=== PATIENT | male | born 1995 | race Caucasian/White ===

== ENCOUNTER 2019-02-28 07:09 | Inpatient (IN) | payer MEDICAID ==
[2019-02-28] VITALS (21 sets, daily range): BP systolic 96–138; BP diastolic 46–71
[~2019-02-28] VITALS: Ht 170.2 cm; Wt 100.9 kg
[~2019-02-28 07:09] MED LIST: INSASP; INSLAN SQ
[2019-02-28] MEDS ORDERED: SODIUM CHLORIDE 0.9% 1000ML BAG (SEPSIS BOLUS) IV ONE (08:00)
[2019-02-28 08:14] LABS: HEMATOCRIT. 54.2 % (42.0-52.0); HEMOGLOBIN. 16.4 g/dL (14.0-18.0); MEAN CORPUSCULAR HEMOGLOBIN 30.4 pg (28.0-32.0); MEAN CORPUSCULAR VOLUME 100.5 fL (80.0-94.0); MEAN PLATELET VOLUME 9.1 fl (7.4-10.4); PLATELET 415 x1000/uL (130-400); RED CELL DISTRIBUTION WIDTH 14.3 % (11.6-14.6)
[2019-02-28 08:21] LABS: CHLORIDE 87 mEq/L (98-107)
[2019-02-28 08:22] LABS: INR 1.1; PROTHROMBIN TIME 11.4 sec (9.6-11.0)
[2019-02-28 08:26] LABS: ETHANOL BLOOD < 10 mg/dL
[2019-02-28 08:29] LABS: BG BASE EXCESS -24.7 mmol/L (-2.0-2.0); BG CARBOXYHEMOGLOBIN 0.7 % (0.5-1.5); BG DEOXYHEMOGLOBIN 2.2 % (0.0-5.0); BG HCO3 ACT 4.1 mmol/L (22.0-26.0); BG METHEMOGLOBIN 0.5 % (0.0-1.5); BG OXYGEN SATURATION 97.8 % (92.0-98.5); BG OXYHEMOGLOBIN 96.6 % (94.0-97.0); BG PCO2 15.4 mmHg (35.0-45.0); BG PH 7.038 (7.350-7.450); BG PO2 133.7 mmHg (75.0-100.0); BG SAMPLE SITE LEFT RADIAL; BG TOTAL HEMOGLOBIN 15.7 g/dL (12.0-18.0); BG VENT MODE NASAL CANNULA
[2019-02-28] MEDS ORDERED: MORPHINE SULFATE 4 MG/ML CPJ (NOT FOR IM USE) IV STA (08:42)
[2019-02-28] MEDS ORDERED: ONDANSETRON HCL 4MG/2ML INJ IV STA (08:42)
[2019-02-28 08:58] LABS: CLARITY URINE CLEAR (CLEAR); COLOR URINE YELLOW (YELLOW); KETONES URINE 2+ (NEGATIVE); LEUKOCYTE ESTERASE URINE NEGATIVE (NEGATIVE); NITRITE URINE NEGATIVE (NEGATIVE); OCCULT BLOOD URINE 2+ (NEGATIVE); PROTEIN URINE TRACE (NEGATIVE); UROBILINOGEN URINE 0.2 E.U./dL (0.2-1.0)
[2019-02-28] MEDS: INSULIN REGULAR (DRIP) 100 UNITS in SODIUM CHLORIDE 0.9% 99 ML IV SCH ×2 (09:08→10:23)
[2019-02-28 09:13] LABS: PHOSPHORUS 9.3 mg/dL (2.5-4.9)
[2019-02-28 09:15] LABS: BETA HYDROXYBUTYRATE 13.3 mMol/L (0.0-0.3)
[2019-02-28 09:27] LABS: *AMPHETAMINES SCREEN URINE NEGATIVE (NEGATIVE); *BARBITURATES SCREEN URINE NEGATIVE (NEGATIVE); *BENZODIAZEPINES SCREEN URINE NEGATIVE (NEGATIVE); *COCAINE SCREEN URINE NEGATIVE (NEGATIVE)
[2019-02-28 09:28] LABS: CANNABINOID URINE SCREEN NEGATIVE (NEGATIVE); METHADONE URINE SCREEN NEGATIVE (NEGATIVE); OPIATES URINE SCREEN NEGATIVE (NEGATIVE); PHENCYCLIDINE URINE SCREEN NEGATIVE (NEGATIVE)
[2019-02-28 09:34] LABS: PLATELET ESTIMATE INCREASED
[2019-02-28] MEDS ORDERED: SODIUM CHLORIDE 0.9% 1,000 ML IV ONE (10:09)
[2019-02-28] MEDS ORDERED: PIPERACILLIN/TAZOBACTAM 3.375GM/50ML PREMIX IV ONE (10:15)
[2019-02-28] MEDS ORDERED: LACTATED RINGERS 1,000 ML IV SCH (10:30)
[2019-02-28] MEDS ORDERED: IPRATROPIUM/ALBUTEROL 0.5-3(2.5)MG/3ML NEB INH PRN (11:00)
[2019-02-28] MEDS ORDERED: CLONIDINE 0.1MG TABLET PO PRN (11:00)
[2019-02-28] MEDS ORDERED: MAGNESIUM/ALUMINUM HYDROXIDE/SIMETHICONE 30ML UDC PO PRN (11:00)
[2019-02-28] MEDS ORDERED: DIPHENHYDRAMINE 50MG/ML VIAL IV PRN (11:00)
[2019-02-28] MEDS ORDERED: ONDANSETRON HCL 4MG/2ML INJ IV PRN (11:00)
[2019-02-28] MEDS: SODIUM CHLORIDE 0.9% 1,000 ML IV SCH ×2 (12:34→17:31)
[2019-02-28] MEDS: ENOXAPARIN 40MG/0.4ML SYR SUBCUT SCH (12:34)
[2019-02-28 12:45] LABS: PHOSPHORUS 4.4 mg/dL (2.5-4.9)
[2019-02-28] MEDS: CEFTRIAXONE 1 G PREMIX 50 ML IV SCH (13:29)
[2019-02-28] MEDS ORDERED: DEXTROSE 50% WATER 50ML SYRINGE IV PRN ×2 (13:30)
[2019-02-28] MEDS: BLOOD SUGAR DIAGNOSTIC STRIP TEST SCH ×9 (14:00→23:47)
[2019-02-28] MEDS: FLUCONAZOLE 100MG TABLET PO SCH (15:34)
[2019-02-28] MEDS: INSULIN REGULAR (DRIP) 100 UNITS in SODIUM CHLORIDE 0.9% 99 ML IV PRN ×2 (15:35→20:03)
[2019-02-28 16:49] LABS: CREATINE KINASE MB FRACTION 2.6 ng/mL (0.5-3.6)
[2019-02-28 20:45] LABS: CHLORIDE 116 mEq/L (98-107)
[2019-02-28] MEDS: DEXT 5%/0.9% NACL KCL 20MEQ/L 1,000 ML IV SCH (21:11)
[2019-03-01] VITALS (41 sets, daily range): BP systolic 91–151; BP diastolic 36–97
[2019-03-01 00:14] LABS: CREATINE KINASE MB FRACTION 4.8 ng/mL (0.5-3.6)
[2019-03-01] MEDS: BLOOD SUGAR DIAGNOSTIC STRIP TEST SCH ×13 (00:14→21:38)
[2019-03-01 00:39] LABS: CHLORIDE 116 mEq/L (98-107)
[2019-03-01] MEDS: DEXT 5%/0.9% NACL KCL 20MEQ/L 1,000 ML IV SCH ×2 (02:07→06:55)
[2019-03-01 06:26] LABS: BASOPHILS % 0.3 % (0.0-2.0); HEMATOCRIT. 40.6 % (42.0-52.0); LYMPHOCYTES % 9.1 % (20.0-50.0); MEAN CORPUSCULAR HEMOGLOBIN 30.9 pg (28.0-32.0); MEAN CORPUSCULAR VOLUME 89.7 fL (80.0-94.0); MONOCYTES % 11.8 % (2.0-8.0); NEUTROPHILS % 78.8 % (40.0-76.0); PLATELET 269 x1000/uL (130-400); RED BLOOD CELL COUNT 4.53 mill/uL (4.7-6.1); RED CELL DISTRIBUTION WIDTH 13.3 % (11.6-14.6)
[2019-03-01 06:33] LABS: CHLORIDE 118 mEq/L (98-107)
[2019-03-01 06:41] LABS: LDL CHOLESTEROL 43 mg/dL (5-100)
[2019-03-01 06:42] LABS: HDL CHOLESTEROL 41 mg/dL (40-59)
[2019-03-01] MEDS: FLUCONAZOLE 100MG TABLET PO SCH (09:05)
[2019-03-01] MEDS ORDERED: DEXTROSE 50% WATER 50ML SYRINGE IV PRN (09:45)
[2019-03-01] MEDS ORDERED: DEXT 5%/0.45% NACL KCL 20MEQ/L 1,000 ML IV SCH (10:30)
[2019-03-01] MEDS: ENOXAPARIN 40MG/0.4ML SYR SUBCUT SCH (11:22)
[2019-03-01] MEDS: INSULIN LISPRO 100 UNITS/ML SUBCUT SCH ×3 (12:36→21:43)
[2019-03-01] MEDS: CEFTRIAXONE 1 G PREMIX 50 ML IV SCH (12:37)
[2019-03-01 14:28] LABS: CHLORIDE 116 mEq/L (98-107)
[2019-03-01] MEDS ORDERED: INSULIN GLARGINE UD 100 UNITS/ML SYR SUBCUT NR (16:00)
[2019-03-01] MEDS ORDERED: INSULIN LISPRO 100 UNITS/ML SUBCUT NR (20:15)
[2019-03-02] VITALS (32 sets, daily range): BP systolic 110–155; BP diastolic 56–108
[2019-03-02 06:15] LABS: CHLORIDE 109 mEq/L (98-107)
[2019-03-02 06:20] LABS: PHOSPHORUS 1.6 mg/dL (2.5-4.9)
[2019-03-02 06:25] LABS: EOSINOPHILS % 0.8 % (0.0-5.0); HEMATOCRIT. 41.5 % (42.0-52.0); HEMOGLOBIN. 14.2 g/dL (14.0-18.0); LYMPHOCYTES % 21.6 % (20.0-50.0); MEAN CORPUSCULAR HEMOGLOBIN 30.7 pg (28.0-32.0); MEAN PLATELET VOLUME 8.5 fl (7.4-10.4); MONOCYTES % 12.7 % (2.0-8.0); NEUTROPHILS % 63.9 % (40.0-76.0); PLATELET 213 x1000/uL (130-400); RED BLOOD CELL COUNT 4.61 mill/uL (4.7-6.1); RED CELL DISTRIBUTION WIDTH 13.2 % (11.6-14.6)
[2019-03-02] MEDS: BLOOD SUGAR DIAGNOSTIC STRIP TEST SCH ×4 (07:50→21:00)
[2019-03-02] MEDS: INSULIN LISPRO 100 UNITS/ML SUBCUT SCH ×4 (09:34→22:14)
[2019-03-02] MEDS: ENOXAPARIN 30MG/0.3ML SYR SUBCUT SCH ×2 (09:38→22:30)
[2019-03-02] MEDS ORDERED: MAGNESIUM 4 G PREMIX 100 ML IV NR (10:00)
[2019-03-02] MEDS: INSULIN GLARGINE UD 100 UNITS/ML SYR SUBCUT SCH ×2 (12:59→22:32)
[2019-03-02] MEDS ORDERED: INSULIN GLARGINE UD 100 UNITS/ML SYR SUBCUT SCH (22:00)
[2019-03-03] VITALS (15 sets, daily range): BP systolic 99–143; BP diastolic 55–93
[2019-03-03 05:47] LABS: HEMATOCRIT. 41.5 % (42.0-52.0); HEMOGLOBIN. 14.4 g/dL (14.0-18.0); MEAN CORPUSCULAR VOLUME 88.9 fL (80.0-94.0); MEAN PLATELET VOLUME 8.3 fl (7.4-10.4); PLATELET 225 x1000/uL (130-400); RED BLOOD CELL COUNT 4.67 mill/uL (4.7-6.1); RED CELL DISTRIBUTION WIDTH 12.9 % (11.6-14.6)
[2019-03-03 05:57] LABS: CHLORIDE 105 mEq/L (98-107)
[2019-03-03 07:47] LABS: PLATELET ESTIMATE NORMAL
[2019-03-03] MEDS: BLOOD SUGAR DIAGNOSTIC STRIP TEST SCH ×2 (07:50→12:20)
[2019-03-03] MEDS: INSULIN GLARGINE UD 100 UNITS/ML SYR SUBCUT SCH (09:09)
[2019-03-03] MEDS: ENOXAPARIN 30MG/0.3ML SYR SUBCUT SCH (09:12)
[2019-03-03] MEDS: INSULIN LISPRO 100 UNITS/ML SUBCUT SCH ×2 (09:14→12:43)
[2019-03-03] MEDS ORDERED: LANTUSUD SUBCUT (09:40)
[2019-03-03] MEDS ORDERED: INSASP SUBCUT (09:40)
[2019-03-03 12:05] LABS: PHOSPHORUS 2.9 mg/dL (2.5-4.9)
== END 2019-03-03 14:25 | disposition home or self-care (01) | DRG 720 ==
LOC: ER 07:09 → CVICU 10:12 → EDBEDREQ 10:22 → ENRESERV 10:33
PROVIDERS: ADMIT Internal Medicine; ATTEND Internal Medicine
DX: A41.9 Sepsis, unspecified organism (principal); E10.10 Type 1 diabetes mellitus with ketoacidosis without coma; N17.9 Acute kidney failure, unspecified; E83.39 Other disorders of phosphorus metabolism; E87.1 Hypo-osmolality and hyponatremia; E83.42 Hypomagnesemia; B37.9 Candidiasis, unspecified; E87.0 Hyperosmolality and hypernatremia; Z79.4 Long term (current) use of insulin; E86.0 Dehydration; E87.5 Hyperkalemia; L98.9 Disorder of the skin and subcutaneous tissue, unspecified; Z90.49 Acquired absence of other specified parts of digestive tract
CPT/HCPCS: 36415; 36600; 71045; 80048; 80061; 80305; 80320; 82010; 82375; 82550; 82553; 82805; 82962; 83036; 83605; 83735; 84100; 84145; 84443; 84484; 93005; 93308; 93970; 96365; 96366; 96375; 99291; J0696; J1650; J1815; J2270; J2405; J2543; J3475; J7030; J7050; G0480

== ENCOUNTER 2019-04-25 19:29 | Inpatient (IN) | payer MEDICAID ==
[~2019-04-25] VITALS: Ht 170.2 cm; Wt 84.4 kg
[~2019-04-25 19:29] MED LIST changes: -INSASP; +INSASP SUBCUT; -INSLAN SQ; +LANTUSUD SUBCUT
[2019-04-25] MEDS ORDERED: ONDANSETRON HCL 4MG/2ML INJ IV STA ×2 (20:04→21:39)
[2019-04-25] MEDS ORDERED: SODIUM CHLORIDE 0.9% 1000ML BAG (SEPSIS BOLUS) IV ONE (20:15)
[2019-04-25 20:18] LABS: BASOPHILS % 0.6 % (0.0-2.0); EOSINOPHILS % 0.1 % (0.0-5.0); HEMATOCRIT. 51.1 % (42.0-52.0); HEMOGLOBIN. 16.3 g/dL (14.0-18.0); LYMPHOCYTES % 7.4 % (20.0-50.0); MEAN CORPUSCULAR HEMOGLOBIN 30.7 pg (28.0-32.0); MEAN CORPUSCULAR VOLUME 96.1 fL (80.0-94.0); MEAN PLATELET VOLUME 10.1 fl (7.4-10.4); MONOCYTES % 4.7 % (2.0-8.0); NEUTROPHILS % 87.2 % (40.0-76.0); PLATELET 355 x1000/uL (130-400); RED BLOOD CELL COUNT 5.31 mill/uL (4.7-6.1); RED CELL DISTRIBUTION WIDTH 13.6 % (11.6-14.6)
[2019-04-25 20:22] LABS: CHLORIDE 92 mEq/L (98-107)
[2019-04-25 20:23] LABS: PROTHROMBIN TIME 10.7 sec (9.6-11.0)
[2019-04-25 20:25] LABS: BG BASE EXCESS -26.4 mmol/L (-2.0-2.0); BG DEOXYHEMOGLOBIN 3.3 % (0.0-5.0); BG FRACTION INSPIRED OXYGEN 21; BG HCO3 ACT 2.7 mmol/L (22.0-26.0); BG METHEMOGLOBIN 0.5 % (0.0-1.5); BG OXYGEN SATURATION 96.7 % (92.0-98.5); BG OXYHEMOGLOBIN 96.2 % (94.0-97.0); BG PCO2 10.8 mmHg (35.0-45.0); BG PH 7.012 (7.350-7.450); BG PO2 109.4 mmHg (75.0-100.0); BG SAMPLE SITE RIGHT RADIAL; BG TOTAL HEMOGLOBIN 15.5 g/dL (12.0-18.0); BG VENT MODE ROOM AIR
[2019-04-25 20:26] LABS: ETHANOL BLOOD < 10 mg/dL
[2019-04-25] MEDS ORDERED: ONDANSETRON HCL 4MG/2ML INJ IV ONE (21:00)
[2019-04-25] MEDS ORDERED: MORPHINE SULFATE 4 MG/ML CPJ (NOT FOR IM USE) IV ONE (21:00)
[2019-04-25 21:04] LABS: BETA HYDROXYBUTYRATE 14.4 mMol/L (0.0-0.3)
[2019-04-25] MEDS ORDERED: MORPHINE SULFATE 4 MG/ML CPJ (NOT FOR IM USE) IV STA (21:39)
[2019-04-25] MEDS ORDERED: SODIUM CHLORIDE 0.9% 1,000 ML IV STA (21:39)
[2019-04-25] MEDS ORDERED: METRONIDAZOLE 500 MG PREMIX 100 ML IV ONE (21:45)
[2019-04-25] MEDS ORDERED: PIPERACILLIN/TAZ 3.375G PREMIX 50 ML IV ONE (21:45)
[2019-04-25] MEDS: INSULIN REGULAR (DRIP) 100 UNITS in SODIUM CHLORIDE 0.9% 100 ML IV NR (22:39)
[2019-04-25 23:09] LABS: PHOSPHORUS 7.2 mg/dL (2.5-4.9)
[2019-04-25 23:29] LABS: CLARITY URINE CLEAR (CLEAR); COLOR URINE YELLOW (YELLOW); KETONES URINE 4+ (NEGATIVE); LEUKOCYTE ESTERASE URINE NEGATIVE (NEGATIVE); NITRITE URINE NEGATIVE (NEGATIVE); OCCULT BLOOD URINE 1+ (NEGATIVE); PROTEIN URINE TRACE (NEGATIVE); SPECIFIC GRAVITY URINE 1.019 (1.005-1.030); UROBILINOGEN URINE 0.2 E.U./dL (0.2-1.0)
[2019-04-25 23:55] LABS: *AMPHETAMINES SCREEN URINE NEGATIVE (NEGATIVE); *BARBITURATES SCREEN URINE NEGATIVE (NEGATIVE); *BENZODIAZEPINES SCREEN URINE NEGATIVE (NEGATIVE); *COCAINE SCREEN URINE NEGATIVE (NEGATIVE)
[2019-04-25 23:56] LABS: CANNABINOID URINE SCREEN NEGATIVE (NEGATIVE); METHADONE URINE SCREEN NEGATIVE (NEGATIVE); OPIATES URINE SCREEN PRESUMTIVE POSITIVE (NEGATIVE); PHENCYCLIDINE URINE SCREEN NEGATIVE (NEGATIVE)
[2019-04-26] VITALS (52 sets, daily range): BP systolic 102–158; BP diastolic 22–87
[2019-04-26 00:33] LABS: PHOSPHORUS 6.4 mg/dL (2.5-4.9)
[2019-04-26 02:30] LABS: PHOSPHORUS 4.1 mg/dL (2.5-4.9)
[2019-04-26] MEDS: PIPERACILLIN/TAZOBACTAM 3.375 G in DEXT 5% WATER 100 ML IV SCH ×4 (05:26→23:51)
[2019-04-26] MEDS: SODIUM CHL 0.9% + KCL 20MEQ/L 1,000 ML IV SCH ×3 (05:26→13:56)
[2019-04-26] MEDS ORDERED: INSULIN REGULAR (DRIP) 100 UNITS in SODIUM CHLORIDE 0.9% 99 ML IV SCH (06:00)
[2019-04-26] MEDS ORDERED: DEXTROSE 50% WATER 50ML SYRINGE IV PRN ×3 (07:30→07:45)
[2019-04-26] MEDS ORDERED: BLOOD SUGAR DIAGNOSTIC STRIP TEST SCH ×2 (07:30→07:45)
[2019-04-26] MEDS: BLOOD SUGAR DIAGNOSTIC STRIP TEST SCH ×15 (08:47→23:50)
[2019-04-26] MEDS: ENOXAPARIN 40MG/0.4ML SYR SUBCUT SCH (08:48)
[2019-04-26 10:28] LABS: CHLORIDE 119 mEq/L (98-107)
[2019-04-26] MEDS ORDERED: PNEUMOCOCCAL 23-VAL P-SAC VAC 0.5 ML IM ONE (12:00)
[2019-04-26 13:11] LABS: CHLORIDE 120 mEq/L (98-107)
[2019-04-26 13:17] LABS: PHOSPHORUS 1.4 mg/dL (2.5-4.9)
[2019-04-26] MEDS ORDERED: SODIUM CHLORIDE 0.45% 1,000 ML IV SCH (16:00)
[2019-04-26] MEDS: INSULIN REGULAR (DRIP) 100 UNITS in SODIUM CHLORIDE 0.9% 100 ML IV SCH ×2 (17:29→17:31)
[2019-04-26] MEDS: DEXT 5%/0.45% NACL 1000ML 1,000 ML IV SCH ×2 (17:44→21:51)
[2019-04-26] MEDS: INSULIN REGULAR (DRIP) 100 UNITS in SODIUM CHLORIDE 0.9% 100 ML IV NR (17:51)
[2019-04-26 20:04] LABS: CHLORIDE 121 mEq/L (98-107)
[2019-04-27] VITALS (28 sets, daily range): BP systolic 103–139; BP diastolic 45–82
[2019-04-27] MEDS: BLOOD SUGAR DIAGNOSTIC STRIP TEST SCH ×12 (01:00→21:00)
[2019-04-27] MEDS: DEXT 5%/0.45% NACL 1000ML 1,000 ML IV SCH ×2 (02:11→06:09)
[2019-04-27 04:01] LABS: CHLORIDE 120 mEq/L (98-107)
[2019-04-27] MEDS: PIPERACILLIN/TAZOBACTAM 3.375 G in DEXT 5% WATER 100 ML IV SCH ×3 (06:09→18:03)
[2019-04-27 09:09] LABS: BASOPHILS % 0.4 % (0.0-2.0); EOSINOPHILS % 0.2 % (0.0-5.0); HEMATOCRIT. 36.9 % (42.0-52.0); HEMOGLOBIN. 12.6 g/dL (14.0-18.0); MEAN CORPUSCULAR HEMOGLOBIN 30.2 pg (28.0-32.0); MEAN CORPUSCULAR VOLUME 88.2 fL (80.0-94.0); MEAN PLATELET VOLUME 8.5 fl (7.4-10.4); MONOCYTES % 11.2 % (2.0-8.0); NEUTROPHILS % 78.2 % (40.0-76.0); PLATELET 207 x1000/uL (130-400); RED BLOOD CELL COUNT 4.18 mill/uL (4.7-6.1); RED CELL DISTRIBUTION WIDTH 13.1 % (11.6-14.6)
[2019-04-27 09:14] LABS: CHLORIDE 118 mEq/L (98-107)
[2019-04-27] MEDS ORDERED: POTASSIUM CHLORIDE 20MEQ TABLET SR PO NR (10:15)
[2019-04-27] MEDS ORDERED: DEXTROSE 50% WATER 50ML SYRINGE IV PRN (10:15)
[2019-04-27] MEDS: SODIUM CHLORIDE 0.45% 1,000 ML IV SCH (10:52)
[2019-04-27] MEDS: ENOXAPARIN 40MG/0.4ML SYR SUBCUT SCH (10:52)
[2019-04-27] MEDS: INSULIN LISPRO 100 UNITS/ML SUBCUT SCH ×3 (12:37→21:00)
[2019-04-27 15:09] LABS: CHLORIDE 110 mEq/L (98-107)
[2019-04-27] MEDS: ENOXAPARIN 30MG/0.3ML SYR SUBCUT SCH (21:46)
[2019-04-27] MEDS ORDERED: INSULIN GLARGINE UD 100 UNITS/ML SYR SUBCUT SCH (22:00)
[2019-04-28] VITALS (44 sets, daily range): BP systolic 114–147; BP diastolic 50–93
[2019-04-28] MEDS: PIPERACILLIN/TAZOBACTAM 3.375 G in DEXT 5% WATER 100 ML IV SCH ×5 (00:20→23:33)
[2019-04-28] MEDS: SODIUM CHLORIDE 0.45% 1,000 ML IV SCH (06:36)
[2019-04-28] MEDS ORDERED: INSULIN LISPRO 100 UNITS/ML SUBCUT NR (06:45)
[2019-04-28 06:52] LABS: BASOPHILS % 0.8 % (0.0-2.0); EOSINOPHILS % 0.1 % (0.0-5.0); HEMATOCRIT. 39.6 % (42.0-52.0); HEMOGLOBIN. 13.4 g/dL (14.0-18.0); LYMPHOCYTES % 15.1 % (20.0-50.0); MEAN CORPUSCULAR HEMOGLOBIN 30.6 pg (28.0-32.0); MEAN CORPUSCULAR VOLUME 90.7 fL (80.0-94.0); MONOCYTES % 11.8 % (2.0-8.0); NEUTROPHILS % 72.2 % (40.0-76.0); PLATELET 203 x1000/uL (130-400); RED BLOOD CELL COUNT 4.37 mill/uL (4.7-6.1); RED CELL DISTRIBUTION WIDTH 13.4 % (11.6-14.6)
[2019-04-28 07:01] LABS: CHLORIDE 108 mEq/L (98-107)
[2019-04-28] MEDS: BLOOD SUGAR DIAGNOSTIC STRIP TEST SCH ×14 (07:17→23:00)
[2019-04-28] MEDS ORDERED: INSULIN LISPRO 100 UNITS/ML SUBCUT SCH (07:20)
[2019-04-28] MEDS: INSULIN LISPRO 100 UNITS/ML SUBCUT SCH ×2 (07:38→08:00)
[2019-04-28] MEDS ORDERED: DEXTROSE 50% WATER 50ML SYRINGE IV PRN ×2 (09:15)
[2019-04-28] MEDS ORDERED: DEXT 5%/0.45% NACL 1000ML 1,000 ML IV SCH (09:15)
[2019-04-28] MEDS: ENOXAPARIN 30MG/0.3ML SYR SUBCUT SCH ×2 (09:28→20:48)
[2019-04-28] MEDS: INSULIN REGULAR (DRIP) 100 UNITS in SODIUM CHLORIDE 0.9% 99 ML IV PRN (10:45)
[2019-04-28 12:50] LABS: CHLORIDE 109 mEq/L (98-107)
[2019-04-28] MEDS ORDERED: POTASSIUM CHLORIDE INJ 20 MEQ in DEXT 5%/0.9% NACL 1,000 ML IV SCH (13:45)
[2019-04-28] MEDS ORDERED: POTASSIUM CHLORIDE INJ 40 MEQ in DEXT 5% WATER 230 ML IV NR (16:30)
[2019-04-28] MEDS ORDERED: DEXT 5%/0.9% NACL KCL 20MEQ/L 1,000 ML IV SCH (17:00)
[2019-04-28 17:18] LABS: CHLORIDE 111 mEq/L (98-107)
[2019-04-28] MEDS ORDERED: INSULIN GLARGINE UD 100 UNITS/ML SYR SUBCUT SCH (21:00)
[2019-04-28 21:04] LABS: CHLORIDE 113 mEq/L (98-107)
[2019-04-29] VITALS (55 sets, daily range): BP systolic 88–147; BP diastolic 44–112
[2019-04-29] MEDS: BLOOD SUGAR DIAGNOSTIC STRIP TEST SCH ×15 (01:00→17:09)
[2019-04-29 01:01] LABS: CHLORIDE 114 mEq/L (98-107)
[2019-04-29] MEDS ORDERED: POTASSIUM CHLORIDE 20MEQ TABLET SR PO SCH (03:30)
[2019-04-29] MEDS ORDERED: POTASSIUM CHLORIDE INJ 40 MEQ in DEXT 5% WATER 250 ML IV SCH (05:00)
[2019-04-29 06:04] LABS: CHLORIDE 112 mEq/L (98-107)
[2019-04-29] MEDS: INSULIN REGULAR (DRIP) 100 UNITS in SODIUM CHLORIDE 0.9% 99 ML IV PRN (06:31)
[2019-04-29] MEDS: PIPERACILLIN/TAZOBACTAM 3.375 G in DEXT 5% WATER 100 ML IV SCH ×3 (07:44→18:19)
[2019-04-29] MEDS: ENOXAPARIN 30MG/0.3ML SYR SUBCUT SCH (08:16)
[2019-04-29] MEDS: INSULIN LISPRO 100 UNITS/ML SUBCUT SCH ×5 (08:17→18:14)
[2019-04-29] MEDS: SODIUM CHLORIDE 0.45% 1,000 ML IV SCH ×2 (08:17→18:14)
[2019-04-29] MEDS ORDERED: INSULIN GLARGINE UD 100 UNITS/ML SYR SUBCUT SCH (10:00)
[2019-04-29 10:07] LABS: CHLORIDE 108 mEq/L (98-107)
[2019-04-29] MEDS ORDERED: DEXTROSE 50% WATER 50ML SYRINGE IV PRN (12:30)
[2019-04-29] MEDS ORDERED: INSU100I28 SQ (17:35)
[2019-04-29] MEDS ORDERED: INSASP SUBCUT (17:35)
[2019-04-30] MEDS ORDERED: ENOXAPARIN 40MG/0.4ML SYR SUBCUT SCH (09:00)
== END 2019-04-29 19:55 | disposition home or self-care (01) | DRG 420 ==
LOC: ER 19:29 → MICUNO 22:09 → EDBEDREQ 22:13 → EDBEDREQTM 22:13 → ENRESERV 04-26 01:33 → MICUNO 04-27 09:51 → 6EST 04-27 18:55 → CVICU 04-28 10:13
PROVIDERS: ADMIT Internal Medicine; ATTEND Internal Medicine
DX: E11.10 Type 2 diabetes mellitus with ketoacidosis without coma (principal); E87.0 Hyperosmolality and hypernatremia; D72.829 Elevated white blood cell count, unspecified; E87.1 Hypo-osmolality and hyponatremia; E87.5 Hyperkalemia; Z86.39 Personal history of other endocrine, nutritional and metabolic disease; Z79.84 Long term (current) use of oral hypoglycemic drugs
CPT/HCPCS: 36415; 36600; 71045; 74176; 80048; 80305; 80320; 81003; 82010; 82375; 82805; 82962; 83605; 83735; 84100; 84145; 84484; 93005; 93970; 96365; 96366; 96375; 96376; 99291; J1650; J1815; J2270; J2405; J2543; J3480; J3490; J7030; J7050; J7060; G0480

== ENCOUNTER 2019-10-26 11:11 | Emergency (ER) | payer MEDICAID ==
[~2019-10-26] VITALS: Ht 165.1 cm; Wt 99.0 kg
[~2019-10-26 11:11] MED LIST changes: +INSU100I28 SQ; -LANTUSUD SUBCUT
[2019-10-26] MEDS ORDERED: CEPHALEXIN 250MG CAPSULE PO ONE (14:45)
[2019-10-26] MEDS ORDERED: LIDOCAINE HCL 1% 20ML VIAL (Pyxis) INJ INFIL ONE (14:45)
[2019-10-26] MEDS ORDERED: SULFAMETHOXAZOLE/TRIMETHOPRIM 800/160MG TABLET PO ONE (14:45)
[2019-10-26] MEDS ORDERED: IBUPROFEN 600MG TABLET PO ONE (15:15)
[2019-10-26 16:30] VITALS: BP 130/89
== END 2019-10-26 16:40 | disposition home or self-care (01) ==
LOC: ER 11:12
DX: L02.413 Cutaneous abscess of right upper limb (principal); L03.113 Cellulitis of right upper limb; E11.9 Type 2 diabetes mellitus without complications
CPT/HCPCS: 10060; 73030; 87070; 87077; 99284

== ENCOUNTER 2020-03-01 07:29 | Inpatient (IN) | payer MEDICAID ==
[~2020-03-01] VITALS: Ht 170.2 cm; Wt 89.0 kg
[2020-03-01] MEDS ORDERED: ONDANSETRON HCL 4MG/2ML INJ IV STA (08:17)
[2020-03-01] MEDS ORDERED: MORPHINE SULFATE 4 MG/ML CPJ (NOT FOR IM USE) IV STA (08:17)
[2020-03-01] MEDS ORDERED: SODIUM CHLORIDE 0.9% 1,000 ML IV ONE (08:17)
[2020-03-01 09:09] LABS: BASOPHILS % 0.7 % (0.0-2.0); EOSINOPHILS % 0.1 % (0.0-5.0); HEMATOCRIT. 52.5 % (42.0-52.0); HEMOGLOBIN. 16.1 g/dL (14.0-18.0); LYMPHOCYTES % 7.3 % (20.0-50.0); MEAN CORPUSCULAR HEMOGLOBIN 30.7 pg (28.0-32.0); MEAN CORPUSCULAR VOLUME 99.8 fL (80.0-94.0); MEAN PLATELET VOLUME 10.3 fl (7.4-10.4); MONOCYTES % 5.2 % (2.0-8.0); NEUTROPHILS % 86.7 % (40.0-76.0); PLATELET 343 x1000/uL (130-400); RED BLOOD CELL COUNT 5.26 mill/uL (4.7-6.1); RED CELL DISTRIBUTION WIDTH 14.3 % (11.6-14.6)
[2020-03-01 09:19] LABS: D-DIMER 0.34 mg/L FEU (<0.50); INR 1.1; PROTHROMBIN TIME 11.1 sec (9.6-11.0)
[2020-03-01 09:20] LABS: CHLORIDE 96 mEq/L (98-107)
[2020-03-01 09:24] LABS: ETHANOL BLOOD < 10 mg/dL
[2020-03-01] MEDS ORDERED: INSULIN REGULAR (DRIP) 100 UNITS in SODIUM CHLORIDE 0.9% 99 ML IV ONE (09:36)
[2020-03-01] MEDS ORDERED: SODIUM CHLORIDE 0.9% 1,000 ML IV STA (09:36)
[2020-03-01 09:40] LABS: CLARITY URINE CLEAR (CLEAR); COLOR URINE YELLOW (YELLOW); KETONES URINE 4+ (NEGATIVE); LEUKOCYTE ESTERASE URINE NEGATIVE (NEGATIVE); NITRITE URINE NEGATIVE (NEGATIVE); OCCULT BLOOD URINE NEGATIVE (NEGATIVE); PROTEIN URINE 1+ (NEGATIVE); SPECIFIC GRAVITY URINE 1.027 (1.005-1.030); UROBILINOGEN URINE 0.2 E.U./dL (0.2-1.0)
[2020-03-01] MEDS ORDERED: INSULIN REGULAR (HUMULIN R) 300UNITS/3ML IV ONE (09:45)
[2020-03-01 09:53] LABS: BETA HYDROXYBUTYRATE 11.6 mMol/L (0.0-0.3)
[2020-03-01] MEDS ORDERED: CEFTRIAXONE 1 G PREMIX 50 ML IV ONE (10:00)
[2020-03-01] MEDS ORDERED: SODIUM CHLORIDE 0.9% 1000ML BAG (SEPSIS BOLUS) IV ONE (10:00)
[2020-03-01 10:02] LABS: *BENZODIAZEPINES SCREEN URINE NEGATIVE (NEGATIVE)
[2020-03-01 10:03] LABS: *AMPHETAMINES SCREEN URINE NEGATIVE (NEGATIVE); *BARBITURATES SCREEN URINE NEGATIVE (NEGATIVE); CANNABINOID URINE SCREEN NEGATIVE (NEGATIVE); METHADONE URINE SCREEN NEGATIVE (NEGATIVE); OPIATES URINE SCREEN NEGATIVE (NEGATIVE); PHENCYCLIDINE URINE SCREEN NEGATIVE (NEGATIVE)
[2020-03-01 10:04] LABS: *COCAINE SCREEN URINE NEGATIVE (NEGATIVE)
[2020-03-01 10:20] LABS: BG BASE EXCESS -26.7 mmol/L (-2.0-2.0); BG CARBOXYHEMOGLOBIN 0.3 % (0.5-1.5); BG FRACTION INSPIRED OXYGEN 21; BG HCO3 ACT 2.7 mmol/L (22.0-26.0); BG METHEMOGLOBIN 0.4 % (0.0-1.5); BG OXYHEMOGLOBIN 96.3 % (94.0-97.0); BG PCO2 11.2 mmHg (35.0-45.0); BG PH 6.999 (7.350-7.450); BG SAMPLE SITE RIGHT RADIAL; BG TOTAL HEMOGLOBIN 15.4 g/dL (12.0-18.0); BG VENT MODE ROOM AIR
[2020-03-01] MEDS ORDERED: SODIUM BICARBONATE 8.4% 1 MEQ/ML 50ML SYR IV NR (11:00)
[2020-03-01] MEDS ORDERED: ALBUTEROL (0.083%) 2.5MG/3ML NEB HHN NR (11:00)
[2020-03-01] MEDS ORDERED: CALCIUM CHLORIDE 1GM/10ML SYR IV NR (11:00)
[2020-03-01 11:31] LABS: PHOSPHORUS 8.7 mg/dL (2.5-4.9)
[2020-03-01 13:25] LABS: PHOSPHORUS 5.2 mg/dL (2.5-4.9)
[2020-03-01] MEDS ORDERED: IPRATROPIUM/ALBUTEROL 0.5-3(2.5)MG/3ML NEB HHN PRN (13:45)
[2020-03-01] MEDS ORDERED: CLONIDINE 0.1MG TABLET PO PRN (13:45)
[2020-03-01] MEDS ORDERED: SODIUM CHLORIDE 0.45% 1,000 ML IV SCH (13:45)
[2020-03-01] MEDS ORDERED: DOCUSATE SODIUM 100MG CAPSULE PO PRN (13:45)
[2020-03-01] MEDS ORDERED: INSULIN REGULAR (DRIP) 100 UNITS in SODIUM CHLORIDE 0.9% 100 ML IV SCH (13:45)
[2020-03-01] MEDS ORDERED: ACETAMINOPHEN 325MG TABLET PO PRN (13:45)
[2020-03-01] MEDS ORDERED: LORAZEPAM 2MG/ML CPJ IV PRN (13:45)
[2020-03-01] MEDS ORDERED: ONDANSETRON HCL 4MG/2ML INJ IV PRN (13:45)
[2020-03-01] MEDS ORDERED: SODIUM CHLORIDE 0.45% 500 ML IV ONE (14:00)
[2020-03-01 15:04] LABS: PHOSPHORUS 2.6 mg/dL (2.5-4.9)
[2020-03-01 20:18] LABS: CHLORIDE 109 mEq/L (98-107)
[2020-03-02 00:38] LABS: CHLORIDE 110 mEq/L (98-107)
[2020-03-02] MEDS ORDERED: DEXTROSE 50% WATER 50ML SYRINGE IV PRN (04:00)
[2020-03-02] MEDS ORDERED: INSULIN GLARGINE UD 100 UNITS/ML SYR SUBCUT SCH ×3 (04:30→22:00)
[2020-03-02 04:44] LABS: BASOPHILS % 0.2 % (0.0-2.0); HEMATOCRIT. 37.7 % (42.0-52.0); HEMOGLOBIN. 13.4 g/dL (14.0-18.0); LYMPHOCYTES % 9.6 % (20.0-50.0); MEAN CORPUSCULAR HEMOGLOBIN 31.4 pg (28.0-32.0); MEAN CORPUSCULAR VOLUME 88.6 fL (80.0-94.0); MEAN PLATELET VOLUME 8.7 fl (7.4-10.4); MONOCYTES % 10.5 % (2.0-8.0); NEUTROPHILS % 79.7 % (40.0-76.0); PLATELET 247 x1000/uL (130-400); RED BLOOD CELL COUNT 4.26 mill/uL (4.7-6.1)
[2020-03-02 04:46] LABS: CHLORIDE 111 mEq/L (98-107)
[2020-03-02] MEDS: BLOOD SUGAR DIAGNOSTIC STRIP TEST SCH ×2 (07:03→11:30)
[2020-03-02] MEDS ORDERED: LORAZEPAM 2MG/ML CPJ IV PRN (08:00)
[2020-03-02] MEDS: INSULIN LISPRO (HIGH DOSE) 100 UNITS/ML SUBCUT SCH ×2 (09:00→13:30)
[2020-03-02 10:13] LABS: CHLORIDE 111 mEq/L (98-107)
[2020-03-02 15:00] VITALS: BP 104/66
[2020-03-02] MEDS ORDERED: INSU100I28 SQ (15:08)
[2020-03-02 17:55] LABS: CHLORIDE 107 mEq/L (98-107)
== END 2020-03-02 19:00 | disposition home or self-care (01) | DRG 720 ==
LOC: ER 07:29 → INTOOBSV 10:04 → MICUSO 10:04 → OBSVTOIN 10:04 → EDBEDREQ 10:09 → 5EST 21:47 → MICUSO 23:02 → CANBEDREQ 03-02 21:12
PROVIDERS: ADMIT Internal Medicine; ATTEND Internal Medicine
DX: A41.9 Sepsis, unspecified organism (principal); N17.0 Acute kidney failure with tubular necrosis; E10.10 Type 1 diabetes mellitus with ketoacidosis without coma; E87.0 Hyperosmolality and hypernatremia; E87.5 Hyperkalemia; B37.49 Other urogenital candidiasis; J45.909 Unspecified asthma, uncomplicated; E86.9 Volume depletion, unspecified; E10.65 Type 1 diabetes mellitus with hyperglycemia; Z79.4 Long term (current) use of insulin; Z82.49 Family history of ischemic heart disease and other diseases of the circulatory system; Z83.3 Family history of diabetes mellitus
CPT/HCPCS: 36415; 36600; 71045; 80048; 80053; 80305; 80320; 81003; 82010; 82375; 82805; 82962; 83605; 83735; 84100; 84145; 84484; 85025; 85379; 93005; 94640; 99291; J0696; J1815; J2270; J2405; J3490; J7030; J7050; G0480

== ENCOUNTER 2021-07-23 15:05 | Emergency (ER) | payer MEDICAID ==
[~2021-07-23] VITALS: Ht 170.2 cm; Wt 89.0 kg
[2021-07-23] MEDS ORDERED: LIDOCAINE HCL/EPINEPHRINE 1%-EPI 1:100,000 20 ML VIAL INFIL ONE (16:15)
[2021-07-23] MEDS ORDERED: BACITRACIN ZINC OINT UDPKT TOP ONE (16:15)
[2021-07-23] MEDS ORDERED: IBUPROFEN 600MG TABLET PO ONE (16:15)
[2021-07-23 16:36] VITALS: BP 131/102
[2021-07-23] MEDS ORDERED: SULF1TAB48 PO (17:44)
[2021-07-23] MEDS ORDERED: IBUP-2029 PO (17:44)
[2021-07-23] MEDS ORDERED: AMOX-424 PO (17:44)
== END 2021-07-23 17:59 | disposition home or self-care (01) ==
LOC: ER 15:05
DX: L02.219 Cutaneous abscess of trunk, unspecified (principal); E11.9 Type 2 diabetes mellitus without complications; I10 Essential (primary) hypertension; Z90.49 Acquired absence of other specified parts of digestive tract
CPT/HCPCS: 99283; J3490

== ENCOUNTER 2021-07-27 16:32 | Emergency (ER) | payer MEDICAID ==
[~2021-07-27] VITALS: Ht 170.2 cm; Wt 89.0 kg
[~2021-07-27 16:32] MED LIST changes: +AMOX-424 PO; +IBUP-2029 PO; +SULF1TAB48 PO
[2021-07-27 16:50] VITALS: BP 115/82
== END 2021-07-27 17:20 | disposition home or self-care (01) ==
LOC: ER 16:32
DX: Z48.00 Encounter for change or removal of nonsurgical wound dressing (principal); E11.9 Type 2 diabetes mellitus without complications; I10 Essential (primary) hypertension
CPT/HCPCS: 99281

== ENCOUNTER 2021-11-07 13:54 | Emergency (ER) | payer MEDICAID ==
[~2021-11-07] VITALS: Ht 170.2 cm; Wt 75.0 kg
[2021-11-07] MEDS ORDERED: BENZ-16 MT (15:24)
[2021-11-07 15:36] VITALS: BP 145/67
== END 2021-11-07 15:37 | disposition home or self-care (01) ==
LOC: ER 13:54
DX: R05.9 Cough, unspecified (principal); E11.9 Type 2 diabetes mellitus without complications; Z98.890 Other specified postprocedural states; Z79.899 Other long term (current) drug therapy
CPT/HCPCS: 71045; 99283

== ENCOUNTER 2022-05-14 18:59 | Emergency (ER) | payer MEDICAID ==
[~2022-05-14] VITALS: Ht 170.2 cm; Wt 80.0 kg
[~2022-05-14 18:59] MED LIST changes: +BENZ-16 MT
[2022-05-14 19:02] VITALS: BP 135/107
[2022-05-14] MEDS ORDERED: FLUORESCEIN SODIUM 1MG/STRIP RIGHTEYE ONE (21:00)
[2022-05-14] MEDS ORDERED: TETRACAINE 0.5% OPHTH DROPS 4ML RIGHTEYE ONE (21:00)
[2022-05-14] MEDS ORDERED: POLY10DR EACHEYE (21:32)
[2022-05-14] MEDS ORDERED: TOPUD PO (21:32)
== END 2022-05-14 21:45 | disposition home or self-care (01) ==
LOC: ER 18:59
DX: H10.9 Unspecified conjunctivitis (principal); E11.9 Type 2 diabetes mellitus without complications; Z79.4 Long term (current) use of insulin
CPT/HCPCS: 99283

== ENCOUNTER 2022-10-06 17:50 | Emergency (ER) | payer MEDICAID ==
[~2022-10-06] VITALS: Ht 170.2 cm; Wt 85.0 kg
[~2022-10-06 17:50] MED LIST changes: +POLY10DR EACHEYE; +TOPUD PO
[2022-10-06 18:01] VITALS: BP 143/100
== END 2022-10-06 22:55 | disposition home or self-care (01) ==
LOC: ER 17:50
DX: S69.81XA Other specified injuries of right wrist, hand and finger(s), initial encounter (principal); X58.XXXA Exposure to other specified factors, initial encounter; E10.65 Type 1 diabetes mellitus with hyperglycemia; J45.909 Unspecified asthma, uncomplicated; Y93.89 Activity, other specified; Y92.89 Other specified places as the place of occurrence of the external cause; Z79.4 Long term (current) use of insulin
CPT/HCPCS: 73130; 82962; 99283

== ENCOUNTER 2024-01-11 12:07 | Emergency (ER) | payer MEDICAID ==
[~2024-01-11] VITALS: Ht 172.7 cm; Wt 120.0 kg
[2024-01-11 12:18] VITALS: O2SAT 97
[2024-01-11] MEDS ORDERED: BACITRACIN ZINC OINT UDPKT TOP ONE (15:15)
[2024-01-11] MEDS ORDERED: LIDOCAINE HCL/PF 1% 10 MG/ML 5ML VIAL INFIL ONE (15:15)
[2024-01-11] MEDS ORDERED: AMOX1TAB16 MT (15:17)
[2024-01-11] MEDS: TETANUS, DIPHTHERIA, PERTUSSIS VAC/PF 0.5ML (>10YR OLD) IM ONE (15:24)
[2024-01-11 16:50] VITALS: BP 144/100; PULSE 88; RESP 18; TEMP 97.2
== END 2024-01-11 16:52 | disposition home or self-care (01) ==
LOC: ER 12:50
DX: S61.412A Laceration without foreign body of left hand, initial encounter (principal); J45.909 Unspecified asthma, uncomplicated; E11.9 Type 2 diabetes mellitus without complications; Z90.49 Acquired absence of other specified parts of digestive tract; W54.0XXA Bitten by dog, initial encounter; Y93.89 Activity, other specified; Y92.89 Other specified places as the place of occurrence of the external cause; Y99.8 Other external cause status
CPT/HCPCS: 90715; 12002; 90471; 99283; J3490; Z7610 ×3

== ENCOUNTER 2024-01-13 12:48 | Emergency (ER) | payer MEDICAID ==
[~2024-01-13] VITALS: Ht 172.7 cm; Wt 95.0 kg
[~2024-01-13 12:48] MED LIST changes: +AMOX1TAB16 MT
[2024-01-13 12:50] VITALS: O2SAT 100
[2024-01-13 17:06] VITALS: BP 138/84; PULSE 90; RESP 18; TEMP 98
== END 2024-01-13 17:06 | disposition home or self-care (01) ==
LOC: ER 13:44
DX: S01.81XD Laceration without foreign body of other part of head, subsequent encounter (principal); J45.909 Unspecified asthma, uncomplicated; E11.9 Type 2 diabetes mellitus without complications; Z90.49 Acquired absence of other specified parts of digestive tract; X58.XXXD Exposure to other specified factors, subsequent encounter
CPT/HCPCS: 99281

== ENCOUNTER 2024-01-18 11:26 | Emergency (ER) | payer MEDICAID ==
[~2024-01-18] VITALS: Ht 170.2 cm; Wt 95.0 kg
[2024-01-18 11:51] VITALS: O2SAT 97
[2024-01-18 12:59] VITALS: BP 144/100; PULSE 86; RESP 18; TEMP 98.2
== END 2024-01-18 13:29 | disposition home or self-care (01) ==
LOC: ER 11:26
DX: S61.412D Laceration without foreign body of left hand, subsequent encounter (principal); J45.909 Unspecified asthma, uncomplicated; E11.9 Type 2 diabetes mellitus without complications; Z48.00 Encounter for change or removal of nonsurgical wound dressing; Z79.899 Other long term (current) drug therapy; Z90.49 Acquired absence of other specified parts of digestive tract; X58.XXXD Exposure to other specified factors, subsequent encounter
CPT/HCPCS: 99281

== ENCOUNTER 2024-01-22 17:19 | Emergency (ER) | payer MEDICAID ==
[~2024-01-22] VITALS: Ht 172.7 cm; Wt 105.0 kg
[2024-01-22 17:29] VITALS: BP 119/88; PULSE 106; RESP 18; TEMP 98.2; O2SAT 98
== END 2024-01-22 19:30 | disposition home or self-care (01) ==
LOC: ER 17:19
DX: S61.412D Laceration without foreign body of left hand, subsequent encounter (principal); J45.909 Unspecified asthma, uncomplicated; E11.9 Type 2 diabetes mellitus without complications; Z90.49 Acquired absence of other specified parts of digestive tract
CPT/HCPCS: 99281

== ENCOUNTER 2024-02-14 19:49 | Emergency (ER) | payer MEDICAID ==
[~2024-02-14] VITALS: Ht 170.2 cm; Wt 102.0 kg
[2024-02-14 19:56] VITALS: TEMP 98.7; O2SAT 98
[2024-02-14 23:43] LABS: HEMATOCRIT. 46.2 % (42.0-52.0); HEMOGLOBIN. 15.3 g/dL (14.0-18.0); MEAN CORPUSCULAR HGB CONC 33.2 g/dL (31.0-37.0); MEAN CORPUSCULAR VOLUME 93.4 fL (80.0-94.0); PLATELET 236 x1000/uL (130-400); RED BLOOD CELL COUNT 4.94 mill/uL (4.7-6.1); RED CELL DISTRIBUTION WIDTH 13.4 % (11.6-14.6); WHITE BLOOD COUNT 14.1 x1000/uL (4.5-11.0)
[2024-02-14 23:48] LABS: DIFFERENTIAL COMMENT 1
[2024-02-14 23:50] LABS: CHLORIDE 100 mEq/L (98-107); POTASSIUM 4.7 mEq/L (3.5-5.1); SODIUM 133 mEq/L (136-145)
[2024-02-14 23:51] LABS: CARBON DIOXIDE 18 mEq/L (21-32)
[2024-02-14 23:52] LABS: CALCIUM 9.6 mg/dL (8.7-10.4)
[2024-02-14 23:56] LABS: CREATININE 1.3 mg/dL (0.6-1.3); UREA NITROGEN BLOOD 22 mg/dL (9-23)
[2024-02-15 00:02] LABS: GLUCOSE 372 mg/dL (70-105); TROPONIN I HIGH SENSITIVITY < 4 ng/L (3.0-53)
[2024-02-15 00:07] LABS: PLATELET ESTIMATE NORMAL
[2024-02-15 00:08] LABS: TEAR DROP CELLS 3+
[2024-02-15 01:58] LABS: *AMPHETAMINES SCREEN URINE NEGATIVE (NEGATIVE); *BARBITURATES SCREEN URINE NEGATIVE (NEGATIVE); *BENZODIAZEPINES SCREEN URINE NEGATIVE (NEGATIVE); *COCAINE SCREEN URINE NEGATIVE (NEGATIVE); METHADONE URINE SCREEN NEGATIVE (NEGATIVE)
[2024-02-15 01:59] LABS: CANNABINOID URINE SCREEN NEGATIVE (NEGATIVE); ECSTASY MDMA SCREEN URINE NEGATIVE (NEGATIVE); OPIATES URINE SCREEN NEGATIVE (NEGATIVE); PHENCYCLIDINE URINE SCREEN NEGATIVE (NEGATIVE)
[2024-02-15 02:20] LABS: TROPONIN I HIGH SENSITIVITY < 4 ng/L (3.0-53)
[2024-02-15] MEDS: SODIUM CHLORIDE 0.9% 1,000 ML IV ONE (03:08)
[2024-02-15 04:05] VITALS: BP 131/82; PULSE 97; RESP 18
== END 2024-02-15 04:35 | disposition home or self-care (01) ==
LOC: ER 19:49
DX: R07.89 Other chest pain (principal); E11.65 Type 2 diabetes mellitus with hyperglycemia; J45.909 Unspecified asthma, uncomplicated; Z90.49 Acquired absence of other specified parts of digestive tract
CPT/HCPCS: 99285; 71045; 80048; 85025; 85379; 84484 ×2; 36415; 93005 ×2; 96360; 80305; J7030

== ENCOUNTER 2024-11-25 17:41 | Emergency (ER) | payer MEDICAID ==
[~2024-11-25] VITALS: Ht 167.6 cm; Wt 91.0 kg
[2024-11-25 18:23] VITALS: BP 154/106; PULSE 116; RESP 16; TEMP 36.8; O2SAT 98
[2024-11-25] MEDS ORDERED: CEPH500C2 MT (22:38)
[2024-11-25] MEDS ORDERED: SULF1TAB48 MT (22:40)
== END 2024-11-25 23:02 | disposition home or self-care (01) ==
LOC: ER 17:41
DX: L02.01 Cutaneous abscess of face (principal); E11.9 Type 2 diabetes mellitus without complications; J45.909 Unspecified asthma, uncomplicated; Z79.4 Long term (current) use of insulin; Z90.49 Acquired absence of other specified parts of digestive tract
CPT/HCPCS: 99283